=== PATIENT | male | born 1935 | race Caucasian/White ===

== ENCOUNTER 2018-06-05 12:50 | Inpatient (IN) ==
[2018-06-05] MEDS ORDERED: ASPIRIN 325 MG TABLET PO STA (13:16)
[2018-06-05 13:53] LABS: Apearance,Urine CLEAR (Clear); Bilirubin,Urine Negative (Negative); Blood, Urine Small mg/dL (Negative); Glucose,Urine (UA) Negative (Negative); Ketones,Urine Negative (Negative); Mucus,Urine Few /LPF (Occasional); Nitrite,Urine Negative (Negative); Protein,Urine Negative; RBC,Urine 2 /HPF (0-4); Urine Color Yellow (Yellow); Urine Urobilinogen < 2.0 EU/DL (0.2-1.0); WBC,Urine 1 /HPF (0-6)
[2018-06-05 13:57] LABS: Basophils % 0.5 % (0.0-0.8); Eosinophils # 0.1 10*3/uL (0.0-0.87); Eosinophils % 1.1 % (0.00-10.9); Hematocrit 39.8 VOL% (42.0-52.0); Hemoglobin 12.8 GM/DL (14.0-18.0); Immature Granulocytes % 0.4 %; Immature Granulocytes Absolute 0.03 #; Lymphocytes # 1.9 10*3/uL (1.4-4.0); Lymphocytes % 23.6 % (21.2-54.2); Mean Corpuscular HGB Conc 32.2 GM/DL (32-36); Mean Corpuscular Hemoglobin 29 PG (27-34); Mean Corpuscular Volume 91.3 FL (87-102); Mean Platelet Volume 9.4 FL (9.6-12.0); Monocytes # 0.5 10*3/uL (0.11-0.8); Monocytes % 6.6 % (1.7-12.7); Neutrophils # 5.6 10*3/uL (1.4-7.4); Neutrophils % 67.8 % (38.7-73.9); Platelet Count 292 T/CUMM (130-400); Red Blood Count 4.36 MC/CUMM (3.8-5.5); Red Cell Distribution Width 13.4 % (9.3-17.3); White Blood Count 8.2 T/CUMM (4-12)
[2018-06-05 14:08] LABS: INR 1.6; PT Patient Result 17.7 SECS; Partial Thromboplastin Time 28.1 SECS (0-40)
[2018-06-05 14:19] LABS: Albumin 3.5 G/DL (3.4-5.0); Bilirubin,Total 0.4 MG/DL (0.2-1.0); Calcium 8.9 MG/DL (8.5-10.1); Osmolality,Calculated 274.8 MOS/KG (273-304); Potassium 4.4 MMOL/L (3.5-5.1); Total Protein 7.5 G/DL (6.4-8.3)
[2018-06-05] MEDS ORDERED: ONDANSETRON 4 MG/2 ML VIAL IV PRN (15:58)
[2018-06-05] MEDS ORDERED: ACETAMINOPHEN 325 MG TABLET PO PRN (15:58)
[2018-06-05] MEDS ORDERED: ENOXAPARIN 40 MG/0.4 ML SYRINGE SUBCUT SCH (16:00)
[2018-06-05] MEDS: SODIUM CHLORIDE 0.45% 1,000 ML IV SCH (17:42)
[2018-06-05] MEDS ORDERED: WARFARIN 7.5 MG TABLET PO SCH (18:00)
[2018-06-05] MEDS: SERTRALINE 25 MG TABLET PO SCH (21:17)
[2018-06-05] MEDS: ASPIRIN EC 81 MG TABLET PO SCH (21:17)
[2018-06-05] MEDS: DOCUSATE SODIUM 100 MG CAPSULE PO SCH (21:17)
[2018-06-06 05:23] LABS: Basophils % 0.4 % (0.0-0.8); Eosinophils # 0.2 10*3/uL (0.0-0.87); Eosinophils % 2.1 % (0.00-10.9); Hematocrit 36.4 VOL% (42.0-52.0); Hemoglobin 11.7 GM/DL (14.0-18.0); Immature Granulocytes % 0.4 %; Immature Granulocytes Absolute 0.03 #; Lymphocytes # 2.7 10*3/uL (1.4-4.0); Lymphocytes % 35.9 % (21.2-54.2); Mean Corpuscular HGB Conc 32.1 GM/DL (32-36); Mean Corpuscular Hemoglobin 29 PG (27-34); Monocytes # 0.5 10*3/uL (0.11-0.8); Monocytes % 7.2 % (1.7-12.7); Platelet Count 283 T/CUMM (130-400); Red Cell Distribution Width 13.5 % (9.3-17.3); White Blood Count 7.5 T/CUMM (4-12)
[2018-06-06 05:46] LABS: Risk Ratio 3.79; VLDL CHOLESTEROL 20.8 MG/DL
[2018-06-06] MEDS ORDERED: LEVOFLOXACIN INJ 250 MG in PREMIX 1 EACH IV SCH (07:30)
[2018-06-06] MEDS ORDERED: metroNIDAZOLE INJ 500 MG in PREMIX 1 EACH IV SCH (07:30)
[2018-06-06] MEDS: DOCUSATE SODIUM 100 MG CAPSULE PO SCH ×2 (08:27→22:06)
[2018-06-06] MEDS: PANTOPRAZOLE 40 MG TABLET PO SCH (08:27)
[2018-06-06] MEDS: PIPERACILLIN/TAZOBACTAM 3,375 MG in SODIUM CHLORIDE 0.9% 100 ML IV SCH ×2 (08:27→18:11)
[2018-06-06] MEDS: SODIUM CHLORIDE 0.45% 1,000 ML IV SCH (08:41)
[2018-06-06] MEDS ORDERED: WARFARIN 10 MG TABLET PO SCH (18:00)
[2018-06-06] MEDS: ASPIRIN EC 81 MG TABLET PO SCH (22:06)
[2018-06-06] MEDS: SERTRALINE 25 MG TABLET PO SCH (22:06)
[2018-06-07] MEDS: PIPERACILLIN/TAZOBACTAM 3,375 MG in SODIUM CHLORIDE 0.9% 100 ML IV SCH ×2 (01:28→09:43)
[2018-06-07] MEDS: SODIUM CHLORIDE 0.45% 1,000 ML IV SCH (01:29)
[2018-06-07 04:36] LABS: INR 1.7; PT Patient Result 17.9 SECS
[2018-06-07 07:54] VITALS: BP 132/82
[2018-06-07] MEDS: PANTOPRAZOLE 40 MG TABLET PO SCH (09:28)
[2018-06-07] MEDS: DOCUSATE SODIUM 100 MG CAPSULE PO SCH (09:28)
== END 2018-06-07 11:05 | disposition home or self-care (01) | DRG 392 ==
LOC: N.ED 12:50 → N.EDINP 15:58 → N.2E 17:04
PROVIDERS: ADMIT Family Medicine; ATTEND Family Medicine

== ENCOUNTER 2018-06-11 16:08 | Inpatient (IN) ==
[2018-06-11 17:27] LABS: Basophils % 0.5 % (0.0-0.8); Eosinophils # 0.1 10*3/uL (0.0-0.87); Hematocrit 38.5 VOL% (42.0-52.0); Hemoglobin 12.3 GM/DL (14.0-18.0); Immature Granulocytes % 0.3 %; Immature Granulocytes Absolute 0.02 #; Lymphocytes % 16.5 % (21.2-54.2); Mean Corpuscular HGB Conc 31.9 GM/DL (32-36); Mean Corpuscular Hemoglobin 29 PG (27-34); Mean Corpuscular Volume 90.8 FL (87-102); Mean Platelet Volume 9.8 FL (9.6-12.0); Monocytes # 0.6 10*3/uL (0.11-0.8); Monocytes % 10.3 % (1.7-12.7); Neutrophils # 4.2 10*3/uL (1.4-7.4); Neutrophils % 71.4 % (38.7-73.9); Platelet Count 230 T/CUMM (130-400); Red Blood Count 4.24 MC/CUMM (3.8-5.5); Red Cell Distribution Width 13.7 % (9.3-17.3); White Blood Count 5.8 T/CUMM (4-12)
[2018-06-11 17:39] LABS: INR 1.3; PT Patient Result 14.6 SECS
[2018-06-11 17:45] LABS: Albumin 3.3 G/DL (3.4-5.0); Bilirubin,Total 0.4 MG/DL (0.2-1.0); Calcium 8.5 MG/DL (8.5-10.1); Osmolality,Calculated 266.2 MOS/KG (273-304); Potassium 4.3 MMOL/L (3.5-5.1)
[2018-06-11] MEDS ORDERED: OSELTAMIVIR 75 MG CAPSULE PO ONE (18:16)
[2018-06-11] MEDS ORDERED: ACETAMINOPHEN 325 MG TABLET PO PRN (18:16)
[2018-06-11] MEDS ORDERED: ONDANSETRON 4 MG/2 ML VIAL IV PRN (18:16)
[2018-06-11 18:23] LABS: Apearance,Urine Slightly Hazy (Clear); Bilirubin,Urine Negative (Negative); Blood, Urine Negative (Negative); Glucose,Urine (UA) Negative (Negative); Ketones,Urine Negative (Negative); Mucus,Urine Occasional /LPF (Occasional); Nitrite,Urine Negative (Negative); Protein,Urine Negative; RBC,Urine 3 /HPF (0-4); Urine Color Yellow (Yellow); Urine Specific Gravity 1.017 (1.001-1.035); Urine Urobilinogen < 2.0 EU/DL (0.2-1.0); WBC,Urine 1 /HPF (0-6)
[2018-06-12] MEDS: DEXTROSE 5% NACL 0.9% 1,000 ML IV SCH ×3 (01:36→21:11)
[2018-06-12] MEDS: metroNIDAZOLE INJ 250 MG in IV BAG 1 EACH IV SCH ×4 (04:29→21:07)
[2018-06-12 05:39] LABS: Basophils % 0.5 % (0.0-0.8); Eosinophils % 0.5 % (0.00-10.9); Hematocrit 36.9 VOL% (42.0-52.0); Immature Granulocytes % 0.2 %; Immature Granulocytes Absolute 0.01 #; Lymphocytes # 1.1 10*3/uL (1.4-4.0); Lymphocytes % 28.1 % (21.2-54.2); Mean Corpuscular HGB Conc 32.5 GM/DL (32-36); Mean Corpuscular Hemoglobin 29 PG (27-34); Mean Corpuscular Volume 90.4 FL (87-102); Mean Platelet Volume 10.3 FL (9.6-12.0); Monocytes # 0.6 10*3/uL (0.11-0.8); Monocytes % 15.4 % (1.7-12.7); Neutrophils # 2.2 10*3/uL (1.4-7.4); Neutrophils % 55.3 % (38.7-73.9); Platelet Count 210 T/CUMM (130-400); Red Blood Count 4.08 MC/CUMM (3.8-5.5); Red Cell Distribution Width 13.6 % (9.3-17.3)
[2018-06-12 05:40] LABS: INR 1.5; PT Patient Result 16.1 SECS
[2018-06-12 06:06] LABS: Bilirubin,Total 0.8 MG/DL (0.2-1.0); Calcium 8.5 MG/DL (8.5-10.1); Osmolality,Calculated 266.2 MOS/KG (273-304); Potassium 3.7 MMOL/L (3.5-5.1); Total Protein 6.9 G/DL (6.4-8.3)
[2018-06-12] MEDS: ALBUTEROL/IPRATROPIUM 3 ML NEB RESP TX SCH ×3 (07:34→19:16)
[2018-06-12] MEDS: OSELTAMIVIR 75 MG CAPSULE PO SCH ×2 (08:23→21:06)
[2018-06-12] MEDS: PANTOPRAZOLE 40 MG VIAL IV SCH (08:24)
[2018-06-12] MEDS ORDERED: WARFARIN 7.5 MG TABLET PO SCH (18:00)
[2018-06-12] MEDS: SERTRALINE 25 MG TABLET PO SCH (21:06)
[2018-06-12] MEDS: ASPIRIN EC 81 MG TABLET PO SCH (21:06)
[2018-06-13] MEDS: ALBUTEROL/IPRATROPIUM 3 ML NEB RESP TX SCH ×4 (00:46→19:38)
[2018-06-13] MEDS: metroNIDAZOLE INJ 250 MG in IV BAG 1 EACH IV SCH ×4 (03:43→21:42)
[2018-06-13] MEDS: DEXTROSE 5% NACL 0.9% 1,000 ML IV SCH ×3 (03:44→20:56)
[2018-06-13 05:50] LABS: Basophils % 0.6 % (0.0-0.8); Eosinophils # 0.1 10*3/uL (0.0-0.87); Eosinophils % 2.7 % (0.00-10.9); Hematocrit 35.3 VOL% (42.0-52.0); Hemoglobin 11.2 GM/DL (14.0-18.0); Immature Granulocytes % 0.3 %; Immature Granulocytes Absolute 0.01 #; Lymphocytes # 1.8 10*3/uL (1.4-4.0); Lymphocytes % 55.1 % (21.2-54.2); Mean Corpuscular HGB Conc 31.7 GM/DL (32-36); Mean Corpuscular Hemoglobin 29 PG (27-34); Mean Corpuscular Volume 91.5 FL (87-102); Monocytes # 0.4 10*3/uL (0.11-0.8); Monocytes % 11.4 % (1.7-12.7); Neutrophils % 29.9 % (38.7-73.9); Platelet Count 176 T/CUMM (130-400); Red Blood Count 3.86 MC/CUMM (3.8-5.5); Red Cell Distribution Width 13.9 % (9.3-17.3); White Blood Count 3.3 T/CUMM (4-12)
[2018-06-13 06:14] LABS: Atypical Lymphocytes Few; Lymphocytes 55 % (20-55); Nucleated Red Blood Cells 1 (0-5); Segmented Neutrophils 37 % (50-85); Total Cells Counted 100
[2018-06-13 06:15] LABS: Hypochromasia 1+; Platelet Estimate Adequate
[2018-06-13 06:21] LABS: Calcium 8.3 MG/DL (8.5-10.1); Osmolality,Calculated 278.4 MOS/KG (273-304); Potassium 3.6 MMOL/L (3.5-5.1)
[2018-06-13] MEDS: OSELTAMIVIR 75 MG CAPSULE PO SCH ×2 (09:08→21:41)
[2018-06-13] MEDS: PANTOPRAZOLE 40 MG VIAL IV SCH (09:10)
[2018-06-13] MEDS ORDERED: WARFARIN 10 MG TABLET PO SCH (18:00)
[2018-06-13] MEDS: SERTRALINE 25 MG TABLET PO SCH (21:41)
[2018-06-13] MEDS: ASPIRIN EC 81 MG TABLET PO SCH (21:41)
[2018-06-14] MEDS: ALBUTEROL/IPRATROPIUM 3 ML NEB RESP TX SCH ×2 (00:28→07:17)
[2018-06-14] MEDS ORDERED: cefTRIAXone 500 MG in SYRINGE 1 EACH IV SCH (04:00)
[2018-06-14] MEDS: metroNIDAZOLE INJ 250 MG in IV BAG 1 EACH IV SCH (05:00)
[2018-06-14 08:20] VITALS: BP 123/66
[2018-06-14] MEDS: PANTOPRAZOLE 40 MG VIAL IV SCH (09:32)
[2018-06-14] MEDS: OSELTAMIVIR 75 MG CAPSULE PO SCH (09:32)
== END 2018-06-14 09:31 | disposition home or self-care (01) | DRG 866 ==
LOC: N.ED 16:08 → N.EDINP 18:16 → N.3E 19:04
PROVIDERS: ADMIT Family Medicine; ATTEND Family Medicine